=== PATIENT | female | born 1950 | race African-American/Black ===

== ENCOUNTER 2020-09-20 09:35 | Outpatient (CLI) | payer OTHER, MEDICARE ==
[2020-09-20 10:30] LABS: Estimated GFR-MDRD - POC Greater than 90
== END 2020-09-20 09:36 | disposition home or self-care (01) ==
LOC: CSHCT 09:35
PROVIDERS: ATTEND Internal Medicine
DX: K70.30 Alcoholic cirrhosis of liver without ascites (principal); Z86.010 Personal history of colon polyps; R10.33 Periumbilical pain
CPT/HCPCS: 74177; 82565